=== PATIENT | male | born 2000 | race Hispanic/Latino ===

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

== ENCOUNTER 2018-03-23 18:28 | Emergency (ER) | payer MEDICAID, SELFPAY ==
[2018-03-23] MEDS ORDERED: Ondansetron ODT 4 MG TAB ONE (18:52)
== END 2018-03-23 20:29 | disposition home or self-care (01) ==
LOC: ERS 18:28
DX: K29.70 Gastritis, unspecified, without bleeding (principal)
CPT/HCPCS: 99283; Q0162

== ENCOUNTER 2018-05-11 16:12 | Emergency (ER) | payer SELFPAY | END 2018-05-11 16:47 | disposition home or self-care (01) | LOC: SCSER 16:12 | DX: S39.012A Strain of muscle, fascia and tendon of lower back, initial encounter (principal); X50.1XXA Overexertion from prolonged static or awkward postures, initial encounter | CPT/HCPCS: 99283 ==

== ENCOUNTER 2018-06-15 13:12 | Emergency (ER) | payer SELFPAY ==
[2018-06-15] MEDS ORDERED: Ibuprofen 600 MG TAB ONE (13:22)
== END 2018-06-15 13:30 | disposition home or self-care (01) ==
LOC: SCSER 13:12
DX: S61.402A Unspecified open wound of left hand, initial encounter (principal); X58.XXXA Exposure to other specified factors, initial encounter
CPT/HCPCS: 12001

== ENCOUNTER 2018-06-26 19:53 | Emergency (ER) | payer SELFPAY ==
[2018-06-26] MEDS ORDERED: Ketorolac Tromethamine 30 MG/ML VIAL ONE (21:07)
== END 2018-06-26 21:12 | disposition home or self-care (01) ==
LOC: ERS 19:53
DX: S39.012A Strain of muscle, fascia and tendon of lower back, initial encounter (principal); X50.9XXA Other and unspecified overexertion or strenuous movements or postures, initial encounter
CPT/HCPCS: 99283; J1885

== ENCOUNTER 2020-12-01 06:04 | Emergency (ER) | payer SELFPAY ==
[2020-12-01 07:42] LABS: SARS-CoV-2 NAA Rapid Test Not Detected (NotDetected)
== END 2020-12-01 06:39 | disposition home or self-care (01) ==
LOC: ERS 06:04
DX: J02.9 Acute pharyngitis, unspecified (principal); Z20.822 Contact with and (suspected) exposure to COVID-19
CPT/HCPCS: 99283; U0002; U0005

== ENCOUNTER 2021-08-19 06:31 | Emergency (ER) | payer SELFPAY ==
[2021-08-19] MEDS ORDERED: Ondansetron ODT 4 MG TAB ONE (07:24)
== END 2021-08-19 07:50 | disposition home or self-care (01) ==
LOC: ERS 06:31
DX: K52.9 Noninfective gastroenteritis and colitis, unspecified (principal)
CPT/HCPCS: 99283; Q0162